=== PATIENT | female | born 1950 | race Caucasian/White ===

== ENCOUNTER 2018-10-22 12:28 | Outpatient (CLI) | payer MEDICARE, MEDICAID ==
--- NOTE | 2018-10-22 12:58 | RAD ---
XR Lumbar Spine 2 Or 3 View: 10/22/2018 12:00 AM CLINICAL INDICATION: Severe back pain COMPARISON: February 2009 exam FINDINGS: Fracture:No fracture. Arthropathy:Stable multilevel degenerative changes throughout the imaged lower thoracic, and lumbar s pine Incidental findings:Atherosclerosis. Pelvic phleboliths. IMPRESSION: Redemonstration of multilevel degenerative change. No acute compression fracture or significant subluxation visualized.
== END 2018-10-22 12:29 | disposition home or self-care (01) ==
LOC: BICRAD 12:28
PROVIDERS: ATTEND Specialist
DX: M54.5 Low back pain (principal); M47.816 Spondylosis without myelopathy or radiculopathy, lumbar region
CPT/HCPCS: 72100

== ENCOUNTER 2018-11-05 10:41 | Outpatient (CLI) | payer MEDICARE, MEDICAID ==
--- NOTE | 2018-11-05 12:04 | MRI ---
MRI of the lumbar spine: 11/05/2018 COMPARISON: None HISTORY: Chronic low back pain with bilateral leg pain, occasional numbness and tingling down the leg s TECHNIQUE: Multiplanar multisequence MR imaging of the lumbar spine obtained without contrast FINDINGS: The sagittal STIR imaging demonstrates no focal area of osseous marrow edema. There is no significant anterolisthesis or retrolisthesis noted within the lumbar spine. On the basis of 5 lumbar type vertebral bodies, the conus medullaris terminates at the T12-L1 level. T11-12: Disc space narrowing with disc desiccation and mild disc bulge. Bilateral facet hypertrophy. No significant central canal or neural foraminal stenosis. T12-L1: There is disc space narrowing with disc desiccation and anterior osteophyte formation. Mild d isc bulge. Mild bilateral facet hypertrophy. No significant central canal or neural foraminal stenosis. L2-3: Mild bilateral facet hypertrophy, right greater than left, with mild ligamentum flavum hypertro phy. Disc space narrowing and disc desiccation noted. No significant central canal or neural foraminal stenosis. L3-4: Bilateral facet hypertrophy and hypertrophy of ligamentum flavum. Disc desiccation and minimal disc bulge present with no significant central canal or neural foraminal stenosis. L4-5: There is disc space narrowing and disc desiccation. Anterior osteophyte formation noted. Small disc osteophyte complex present. No central canal stenosis. Mild/moderate bilateral neural foraminal stenosis, left greater than right. L5-S1: Bilateral facet hypertrophy, right greater than left. Mild/moderate right neural foraminal zaina nosis. No significant central canal or left neural foraminal stenosis. The visualized retroperitoneal structures appear grossly unremarkable. Benign hemangioma noted within the L2 vertebral body. IMPRESSION: Degenerative change within the lumbar spine as detailed above.
== END 2018-11-05 10:42 | disposition home or self-care (01) ==
LOC: BICMRI 10:41
PROVIDERS: ATTEND Specialist
DX: M54.5 Low back pain (principal); M47.816 Spondylosis without myelopathy or radiculopathy, lumbar region
CPT/HCPCS: 72148

== ENCOUNTER 2019-10-21 15:15 | Emergency (ER) | payer MEDICARE, MEDICAID, OTHER ==
[~2019-10-21 15:15] MED LIST: Iopamidol-370 76% 500 ML 1 ML ONE
[2019-10-21] MEDS ORDERED: Ibuprofen 200 MG TAB ONE (15:54)
[2019-10-21] MEDS ORDERED: Acetaminophen 500 MG TAB ONE (15:54)
--- NOTE | 2019-10-21 16:23 | RAD ---
RADIOGRAPH CHEST 1 VIEW: DATE: 10/21/2019 HISTORY: 68-year-old female with fever FINDINGS: There are no airspace densities, pulmonary edema, pneumothorax, or cardiomegaly. The lateral costophr enic angles are sharp. IMPRESSION: No acute cardiopulmonary findings.
[2019-10-21] MEDS ORDERED: Ondansetron PF 4 MG/2 ML Vial ONE (16:24)
[2019-10-21] MEDS ORDERED: Morphine 4 MG/ML VIAL ONE (16:24)
[2019-10-21 16:27] LABS: Hemoglobin 13.7 g/dL (12.0-16.0); Mean Corpuscular HGB CONC 34.8 g/dL (32.0-36.0); Mean Corpuscular Hemoglobin 33.6 pg (27.0-31.0); Mean Corpuscular Volume 96.4 fL (78.0-98.0); RBC Distribution Width 11.3 % (11.5-14.5); Red Blood Cell (RBC) Count 4.09 mill/uL (4.20-5.40)
[2019-10-21] MEDS ORDERED: Cefepime 2 GM VIAL ONE (16:44)
[2019-10-21 16:47] LABS: ALT (SGPT) 33 U/L (8-55); AST (SGOT) 28 U/L (5-34); Alkaline Phosphatase 72 U/L (40-110); Anion Gap 12 mmol/L (10-20); BUN (Urea Nitrogen) 22 mg/dL (9.8-20.1); Bilirubin, Total 3.7 mg/dL (0.2-1.2); Calc. Creatinine Clearance 0 mL/min (70-130); Calcium 8.2 mg/dL (7.8-10.44); Carbon Dioxide 25 mmol/L (23-31); Chloride 99 mmol/L (98-107); Estimated GFR-MDRD 58; Globulin 2.6 g/dL (2.4-3.5); Glucose 276 mg/dL (80-115); Potassium 3.8 mmol/L (3.5-5.1); Protein, Total 5.6 g/dL (6.0-8.3); Sodium 132 mmol/L (136-145)
[2019-10-21 16:52] LABS: Band 54 % (5-11); Lymphocytes 3 % (21-51); MDiff Complete? YES; Mean Platelet Volume 10.7 fL (7.4-10.4); Monocytes 5 % (0-10); Neutrophil 32 % (42-75); Platelet Count 104 thou/uL (130-400); Platelet Morphology Comment Appears Decreased; Polychromasia SLIGHT = 2-3 cells (100X) (0-2/hpf); Reactive Lymphocytes 6 % (0-10); Reflex for Review?? YES
[2019-10-21 17:23] LABS: Bilirubin Negative (Negative); Blood, Urine Trace (Negative); Clarity Turbid (Clear); Glucose, Urine (Dipstick) 500 mg/dL (Negative); Ketone, Urine Trace mg/dL (Negative); Leukocyte Negative Leu/uL (Negative); Nitrite Negative (Negative); Protein, Urine (Dipstick) 70 mg/dL (Neg-Trace); RBC/HPF 0-3 HPF (0-3); Specific Gravity, Urine 1.027 (1.002-1.036); Squamous Epithelial None Seen HPF (0-3); WBC/HPF 0-3 HPF (0-3); pH, Urine 5.5 (5.0-9.0)
[2019-10-21 17:36] LABS: Bacteria/HPF 1+ HPF (None Seen)
--- NOTE | 2019-10-21 17:41 | CT ---
CT OF THE ABDOMEN AND PELVIS WITH IV CONTRAST INDICATION: 68-year-old female with history of stomach problems and incontinence COMPARISON: CT of the abdomen and pelvis with and without contrast dated August 17, 2002 FINDINGS: ABDOMEN: Lung bases: There is a calcified granuloma within the right middle lobe. There is a calcified granulo ma in the left lower lobe Liver: There is diffuse fatty liver Gallbladder: Layered gallstones Pancreas: Normal. Adrenal glands: Normal. Spleen: Normal. Kidneys and ureters: Normal. No hydronephrosis. Vasculature: There are mild vascular calcifications seen involving the visualized vasculature. Lymph nodes:No lymphadenopathy. Free fluid in abdomen:No free fluid is evident. PELVIS: Small and large bowel: There are numerous unopacified small bowel loops draped along the fundal shonda n of the uterus. There is a portion of the proximal sigmoid colon that contacts the left fundal margin of the uterus. There is soft tissue debris and gas present within the wall of the uterus as we ll as within the central aspect of the endometrial canal extending to the level of the vagina. There is a calcification involving the left aspect of the uterine fundus which likely reflects a smal l fibroid. There is no overt wall thickening involving the colon. There is a mild amount retained stool within colon. The small bowel is of normal caliber without evidence of obstruction. Appendix:Normal Bladder: Normal. Rectal and perirectal soft tissues:Normal. Reproductive structures: Left and right adnexa appear within normal limits by CT Free fluid in pelvis: No free fluid is evident. Lymphadenopathy pelvis: No lymphadenopathy is evident. Osseous structures: No acute osseous abnormality. No destructive osteolytic or osteoblastic lesion i s identified. There is scattered degenerative and osteoarthritic changes. Soft tissues:Normal. IMPRESSION: 1. Prominent amount of debris, gas and fluid within the wall and central endometrial canal of the santino cindy suspicious for the presence of either an enteric uterine or a colonic uterine fistula. Alternatively findings may reflect prominent central endometrial malignancy with central necrosis. Wo uld recommend correlation with the clinical exam as the debris does appear to extend into the level of the vagina. [employer] and surgical consultation may be helpful. 2. Diffuse fatty liver. 3. Cholelithiasis 4. Findings of prior granulomatous disease
[2019-10-21] MEDS ORDERED: Fentanyl 100 MCG/2 ML VIAL ONE (18:59)
[2019-10-21 19:28] LABS: Lactic Acid 4.6 mmol/L (0.5-2.2)
[2019-10-22 16:11] LABS: SARS-CoV-2 MS2 Positive; SARS-CoV-2 N Gene Negative; SARS-CoV-2 S Gene Negative; SARS-CoV-2 orf1ab Negative
== END 2019-10-21 20:48 | disposition short-term general hospital (02) ==
LOC: ERS 15:15
DX: A41.9 Sepsis, unspecified organism (principal); E11.9 Type 2 diabetes mellitus without complications; K21.9 Gastro-esophageal reflux disease without esophagitis; F32.9 Major depressive disorder, single episode, unspecified; R10.819 Abdominal tenderness, unspecified site; Z20.828 Contact with and (suspected) exposure to other viral communicable diseases; Z79.4 Long term (current) use of insulin; Z79.899 Other long term (current) drug therapy
CPT/HCPCS: 51701; 71045; 74177; 80053; 82010; 83605; 85025; 87040; 87076; 87086; 96361; 96365; 96366; 96375; 99285; U0003; 36415; 81003; 81015; 85060; 87635; J0692; J2270; J2405; J3010; J3370; J7030; Q9967

== ENCOUNTER 2019-12-15 10:58 | Outpatient (CLI) | payer MEDICARE, MEDICAID ==
--- NOTE | 2019-12-15 13:55 | MRI ---
MRI LUMBAR SPINE WITHOUT CONTRAST: 12/15/19 HISTORY: Lumbar pain. Comparison made to MRI lumbar spine 11/05/18. The lumbar vertebrae maintain height. Vertebral body signal is preserved. Degenerative disc changes a re prominent at L4-5 and there are mild to moderate degenerative disc changes at L5-S1. These degener ative disc changes appear stable from 11/05/18. T12-L1: There is a broad based disc bulge flattening the thecal sac. Facet hypertrophy. Mild central canal stenosis which is stable from the prior study. Mild right foraminal encroachment due to disc bu lge. L1-2: Mild disc bulge abuts the thecal sac. Moderate facet hypertrophy. No significant central canal or foraminal stenosis. L2-3: Mild disc bulge flattens the thecal sac. Moderate facet hypertrophy. Mild to moderate central c anal stenosis which is stable. L3-4: Mild diffuse disc bulge flattens the anterior thecal sac. Moderate facet hypertrophy. Mild cent ral canal stenosis which is stable. L4-5: Mild to moderate broad based disc bulge and posterior osteophytes with degenerative disc and en d plate changes are noted. These changes flatten the thecal sac. Moderate facet hypertrophy. Mild caro tral canal stenosis. Mild foraminal narrowing which appears stable. L5-S1: Mild disc bulge. No central canal stenosis. There is disc osteophyte complex projecting into t he right foramina which appears to displace the exiting right L5 nerve root. This is a stable finding . IMPRESSION: Degenerative disc changes most prominent at L4-5 and L5-S1. Disc bulge at other levels as described a jerzy. Findings are not significantly changed when compared to 11/05/18. POS: PAVAN
== END 2019-12-15 10:59 | disposition home or self-care (01) ==
LOC: BICMRI 10:58
PROVIDERS: ATTEND Physical Medicine & Rehabilitation
DX: M48.07 Spinal stenosis, lumbosacral region (principal); M54.5 Low back pain; M79.604 Pain in right leg; M79.605 Pain in left leg; M51.36 Other intervertebral disc degeneration, lumbar region; M51.37 Other intervertebral disc degeneration, lumbosacral region
CPT/HCPCS: 72148

== ENCOUNTER 2022-02-28 12:07 | Emergency (ER) | payer MEDICARE, OTHER ==
[2022-02-28 13:46] LABS: #Basophils 0.1 thou/uL (0.0-0.2); #Eosinphils 0.1 thou/uL (0.0-0.7); #Lymphocytes 3.2 thou/uL (1.20-3.40); #Monocytes 0.5 thou/uL (0.11-0.59); #Neutrophils 4.3 thou/uL (1.40-6.50); %Eosinophils 1.2 % (0.0-10.0); %Lymphocytes 39.1 % (21.0-51.0); %Monocytes 6.3 % (0.0-10.0); %Neutrophils 52.3 % (42.0-75.0); Mean Corpuscular HGB CONC 33.6 g/dL (32.0-36.0); Mean Corpuscular Hemoglobin 32.9 pg (27.0-31.0); Mean Corpuscular Volume 97.9 fl (78.0-98.0); Mean Platelet Volume 10.4 fL (7.4-10.4); Platelet Count 173 10x3/uL (130-400); RBC Distribution Width 10.8 % (11.5-14.5); Red Blood Cell (RBC) Count 5.18 mill/uL (4.20-5.40); White Blood Cell (WBC) Count 8.2 10x3/uL (4.8-10.8)
[2022-02-28 14:01] LABS: ALT (SGPT) 50 U/L (8-55); AST (SGOT) 29 U/L (5-34); Alkaline Phosphatase 58 U/L (40-110); Anion Gap 11 mmol/L (10-20); BUN (Urea Nitrogen) 11 mg/dL (9.8-20.1); Bilirubin, Total 0.7 mg/dL (0.2-1.2); Calc. Creatinine Clearance 0 mL/min (70-130); Calcium 9.8 mg/dL (7.8-10.44); Carbon Dioxide 29 mmol/L (23-31); Chloride 101 mmol/L (98-107); Estimated GFR 82; Globulin 3.2 g/dL (2.4-3.5); Glucose 154 mg/dL (80-115); Potassium 4.4 mmol/L (3.5-5.1); Protein, Total 7.2 g/dL (5.8-8.1); Sodium 137 mmol/L (136-145)
[2022-02-28 15:33] LABS: Bacteria/HPF 4+ HPF (None Seen); Bilirubin Negative (Negative); Blood, Urine Negative (Negative); Clarity Clear (Clear); Glucose, Urine (Dipstick) Normal (Negative); Ketone, Urine Negative (Negative); Leukocyte Negative Leu/uL (Negative); Nitrite 1+ (Negative); Protein, Urine (Dipstick) Negative (Neg-Trace); RBC/HPF 0-3 HPF (0-3); Specific Gravity, Urine 1.011 (1.002-1.036); Squamous Epithelial 0-3 HPF (0-3); Urobilinogen Normal mg/dL (Less than 2); WBC/HPF 0-3 HPF (0-3)
== END 2022-02-28 16:05 | disposition home or self-care (01) ==
LOC: ERS 12:07
DX: R41.0 Disorientation, unspecified (principal); N39.0 Urinary tract infection, site not specified; E11.9 Type 2 diabetes mellitus without complications; I10 Essential (primary) hypertension
CPT/HCPCS: 36415; 71045; 80053; 81003; 81015; 83605; 84484; 85025; 87040; 87077; 87086; 87149; 87186; 93005

== ENCOUNTER 2022-03-06 11:17 | Emergency (ER) | payer MEDICARE, OTHER ==
[2022-03-06 12:06] LABS: #Basophils 0.1 thou/uL (0.0-0.2); #Eosinphils 0.2 thou/uL (0.0-0.7); #Monocytes 0.5 thou/uL (0.11-0.59); #Neutrophils 4.5 thou/uL (1.40-6.50); %Basophils 0.7 % (0.0-1.0); %Eosinophils 1.8 % (0.0-10.0); %Lymphocytes 36.2 % (21.0-51.0); %Monocytes 6.1 % (0.0-10.0); %Neutrophils 55.1 % (42.0-75.0); Hemoglobin 15.9 g/dL (12.0-16.0); Mean Corpuscular HGB CONC 34.1 g/dL (32.0-36.0); Mean Corpuscular Hemoglobin 33.2 pg (27.0-31.0); Mean Corpuscular Volume 97.2 fl (78.0-98.0); Mean Platelet Volume 10.4 fL (7.4-10.4); Platelet Count 156 10x3/uL (130-400); RBC Distribution Width 10.8 % (11.5-14.5); Red Blood Cell (RBC) Count 4.78 mill/uL (4.20-5.40); White Blood Cell (WBC) Count 8.2 10x3/uL (4.8-10.8)
[2022-03-06 12:31] LABS: ALT (SGPT) 41 U/L (8-55); AST (SGOT) 26 U/L (5-34); Alkaline Phosphatase 55 U/L (40-110); Anion Gap 13 mmol/L (10-20); BUN (Urea Nitrogen) 16 mg/dL (9.8-20.1); Bilirubin, Total 0.6 mg/dL (0.2-1.2); Calc. Creatinine Clearance 0 mL/min (70-130); Calcium 9.6 mg/dL (7.8-10.44); Carbon Dioxide 27 mmol/L (23-31); Chloride 103 mmol/L (98-107); Estimated GFR 78; Glucose 154 mg/dL (80-115); Potassium 4.4 mmol/L (3.5-5.1); Sodium 139 mmol/L (136-145)
[2022-03-06] MEDS ORDERED: cefTRIAXone\\ROCEPHIN 1 GM VIAL ONE (14:46)
[2022-03-06] MEDS ORDERED: Lidocaine 1% MPF 2 ML VIAL ONE (14:47)
== END 2022-03-06 14:50 | disposition home or self-care (01) ==
LOC: ERS 11:17
DX: R41.0 Disorientation, unspecified (principal); R29.810 Facial weakness; E11.9 Type 2 diabetes mellitus without complications; K21.9 Gastro-esophageal reflux disease without esophagitis; I10 Essential (primary) hypertension; E66.9 Obesity, unspecified; Z79.899 Other long term (current) drug therapy
CPT/HCPCS: 36415; 70496; 80053; 84484; 85025; 93005; 96372; J0696